=== PATIENT | male | born 1955 | race Caucasian/White ===

== ENCOUNTER 2018-01-03 07:52 | Day surgery (SDC) | payer MEDICARE ==
[~2018-01-03] VITALS: Ht 182.9 cm; Wt 120.2 kg
[~2018-01-03 07:52] MED LIST: AMARYL1 M1 PO; ARAVA20 MG PO; DURLAZA162.5 MG PO; GABAPENTIN300 M2 PO; LEVOTHYROXIN50 MCG PO; LIPITOR40 M1 PO; LISINOPRIL10 MG PO; METFORMIN500 M1 PO; METO25TAB PO; OXYBUTYNIN CHLO10 MG PO; PIOGLITAZONE HC15 MG PO; PREVACID30 M1 PO; TRESIBA FL100 UNIT/M SC; WARFARIN7.5 MG PO
[2018-01-03 11:25] VITALS: BP 147/84
== END 2018-01-03 11:34 | disposition home or self-care (01) ==
LOC: ENDO 07:52 → ORM 13:00
PROVIDERS: ATTEND Internal Medicine Gastroenterology
PROC: 0DBN8ZX Excision of Sigmoid Colon, Via Natural or Artificial Opening Endoscopic, Diagnostic (ICD-10-PCS; principal; 2018-01-03)
PROC: 0DBL8ZX Excision of Transverse Colon, Via Natural or Artificial Opening Endoscopic, Diagnostic (ICD-10-PCS; 2018-01-03)
DX: Z12.11 Encounter for screening for malignant neoplasm of colon (principal); D12.5 Benign neoplasm of sigmoid colon; D12.3 Benign neoplasm of transverse colon; K64.4 Residual hemorrhoidal skin tags; K64.8 Other hemorrhoids; E11.9 Type 2 diabetes mellitus without complications; Z86.718 Personal history of other venous thrombosis and embolism; Z86.711 Personal history of pulmonary embolism; Z86.010 Personal history of colon polyps